=== PATIENT | male | born 1985 | race Caucasian/White ===

== ENCOUNTER 2024-04-29 12:41 | Emergency (ER) | payer MEDICAID ==
[~2024-04-29] VITALS: Ht 182.9 cm; Wt 72.6 kg
[2024-04-29] MEDS ORDERED: HYDROCODONE/APAP 5/325MG TABLET ONE ×2 (13:27→14:33)
[2024-04-29] MEDS: HYDROCODONE/APAP 5/325MG TABLET PO ONE (13:28)
[2024-04-29] MEDS: HYDROCODONE/APAP 10/325MG TABLET PO ONE (14:34)
[2024-04-29] MEDS ORDERED: IBUP-1957 PO (15:22)
[2024-04-29] MEDS ORDERED: ACET-2605 PO (15:22)
[2024-04-29] MEDS ORDERED: OXYC5TAB3 PO (15:22)
[2024-04-29 15:44] VITALS: BP 129/72; TEMP 98; O2SAT 98
== END 2024-04-29 15:45 | disposition home or self-care (01) ==
LOC: ER 13:03
DX: S92.002A Unspecified fracture of left calcaneus, initial encounter for closed fracture (principal); S90.32XA Contusion of left foot, initial encounter; S93.409A Sprain of unspecified ligament of unspecified ankle, initial encounter; X50.1XXA Overexertion from prolonged static or awkward postures, initial encounter; Y93.89 Activity, other specified; Y92.89 Other specified places as the place of occurrence of the external cause; Y99.8 Other external cause status
CPT/HCPCS: 73630-TC